=== PATIENT | male | born 1955 | race Caucasian/White ===

== ENCOUNTER 2024-10-01 11:42 | Outpatient (AMB) | payer MEDICARE, MEDICAID, SELFPAY ==
--- NOTE | 2024-10-01 11:44 | MHC.PC.OV ---
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: No Allergies No Known Allergies Allergy (Verified 10/01/24 12:10) Medication List - Last Reconciled 10/01/24 by NELY Live- amlodipine 5 mg PO DAILY aspirin 81 mg PO DAILY atorvastatin 20 mg PO BEDTIME B-complex with vitamin C 1 tab PO DAILY lisinopril 20 mg PO DAILY mecobalamin (vitamin B12) 1,000 mcg PO DAILY Tobacco use date assessed: 10/01/24 Fall risk assessment: 1 Fall in past year Last assessed Fall Risk: 10/01/24 Dental Screening Dental Screen Date: 10/01/24 Did you have a dental visit in the last 12 months?: No Did you have a dental problem in the last 6 months where you did not have access to dental care?: No Was dental information given to patient?: Yes HPI HPI Comments History of Present Illness Details 69 y/o M with HTN, HLD, b12 def, JENNY, intracranial atherosclerotic disease (severe stenosis of distal L and multifocal stenosis of the remaining L 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 distal branches and focal severe stenosis of the R V4 segment, Left V4 segment occlussion -chronic CTA head and neck 04/2024), small bilat basal ganglia lacunar infarcts (CT head 03/21/24), hx of DVT LUE, chronic small vessel ischemic dz (MRI brain 05/03) SurgHx: cataract removal bilat 2011 FHx: sig for CAD and [place], vascular dz AAA 4/ siblings SocHx: lives w/ sister and brother, 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 This was a difficult exam as he is a poor historian. ? learning disability or MCI He mentions he fell, was dizzy went to [facility], unsure when, cannot give details. Says a few words but does not complete sentences and then starts talking about something different. Hard to redirect. Even yes/no questions are not answered clearly. States not taking statin Is taking ASA and his BP meds, though not always taking BP meds He offers no complaints today Due for flu and tdap - will get today Will try to get some records on him Tells me he never had a colon and would like one. Exam Awake alert NAD RRR LS CTAB dim throughout Alert, poor historian Plan: Was able to get records from [facility]; appears his cognition today is baseline; as he went to the ER after getting a text to call outpatient radiology for a CT scan. That is what started his workup. He had dizziness and collapse 1 month prior to seeking medical care w/ pcp. Workup showed stroke. Strong family hx of CAD and Vascular dz Consult w/ neuro. Was Rx plavix for 90 days (unsure if he did or did not take this). Sleep study ordered- unsure if he had this done or not. Active w/ Cards - loop recorder recommended - no results. Check baseline labs, get more records, bring back to office in a few weeks to cont to est care. Colon ordered per request; Tdap and Flu admin Will need complex dz mgmt and support from what the records indicate. Total time spent caring for the patient today was 60 minutes. This includes time spent before the visit reviewing the chart, time spent during the visit, and time spent after the visit on documentation, reviewing laboratory results, diagnostic imaging, medications, performing a medically necessary evaluation, counseling on diagnoses, care coordination, ordering appropriate tests, ordering appropriate medications, review of tests performed by other providers, reporting test results with the patient, communication with other healthcare providers. [facility] Medical History (Updated 10/01/24 @ 17:24 by RACHAEL Live) No pertinent family history No pertinent past medical history Surgical History (Updated 10/01/24 @ 12:43 by Radha Dailey MA) H/O eye surgery Social History (Updated 10/01/24 @ 11:57 by Radha Dailey MA) Household Members: Other Household Members Other:: brother and sister Both parents involved: No Caregiver staying overnight: No Housing: Apartment Are you a primary care professional to a significant other at home: No Do you presently have visiting nurse or other home services: No 75 years or older and lives alone: No Alcohol intake: never Patient Tobacco Use Status: Never used Tobacco e-Cigarette/Vaping Use: Never Used Second Hand Smoke Exposure: No service: No Current occupational status: retired Cognitive needs: No Hearing needs: No Vision needs: No Questionnaire PHQ-9 Over the last 2 weeks, how often have you been bothered by any of the following problems? 1. Little interest or pleasure in doing things: not at all 2. Feeling down, depressed, or hopeless: not at all 3. Trouble falling or staying asleep, or sleeping too much: not at all 4. Feeling tired or having little energy: not at all 5. Poor appetite or overeating: not at all 6. Feeling bad about yourself - or that you are a failure or have let yourself or your family down: not at all 7. Trouble concentrating on things, such as reading the newspaper or watching television: not at all 8. Moving or speaking so slowly that other people could have noticed. Or the opposite - being so fidgety or restless that you have been moving around a lot more than usual: not at all 9. Thoughts that you would be better off or of hurting yourself in some way: not at all Total score: 0 Depression Screening Interpretation: Negative Depression Screening Done: Yes 06431 - PHQ-9 Billing: Yes Source: Developed by Drs. Ernesto Escamilla, Amanda Kellogg, Marco Reyna and colleagues, with an educational lyle from [employer]. Thrive Questionnaire Date Thrive assessed: 10/01/24 I am a: Patient What is your living situation today?: I have a steady place to live Within the past 12 months, did the food you bought not last and you didn't have the money to get more?: I choose not to answer this question Within the past 12 months, did you worry whether your food would run out before you got money to buy more?: I choose not to answer this question Do you have trouble paying for medicines?: No Do you have trouble getting transportation to medical appointments?: No Do you have trouble paying your heating and electricity bill?: I choose not to answer this question Do you have trouble taking care of your child, family member or friend?: I choose not to answer this question Do you have trouble with day-to-day activities such as bathing, preparing meals, shopping, managing finances, etc.?: I choose not to answer this question Are you currently unemployed and looking for a job?: I choose not to answer this question Are you interested in more education?: I choose not to answer this question Please select the resources that you would like help with: None Currently or been in a relationship where the following occur: I choose not to answer THRIVE Score: 0 AUDIT C Alcohol Use Questionnaire (AUDIT-C) 1. How often do you have a drink containing alcohol?: Never 3. How often do you have six or more drinks on one occasion?: Never Total Score: 0 Score Reviewed/Action Taken: Yes PALOMA-7 AMB Questionnaire PALOMA-7 Date PALOMA - 7 assessed: 10/01/24 Feeling nervous, anxious, or on edge: 0 = Not at all Not being able to stop or control worryin = Not at all Worrying too much about different things: 0 = Not at all Trouble relaxin = Not at all Being so restless that it is hard to sit still: 0 = Not at all Becoming easily annoyed or irritable: 0 = Not at all Feeling afraid as if something awful might happen: 0 = Not at all Total PALOMA-7 score (0-4 normal; 5-9 mild; 10-14 moderate; 15-21 severe): 0 Source: Developed by Drs. Ernesto Escamilla, Amanda Kellogg, Marco Reyna and colleagues, with an educational lyle from [employer]. PALOMA-7 Assessment Billing PALOMA-7 Assessment Tool: PALOMA-7 Assessment 53890 Physical exam (Primary Care) Vital Signs: Last Vital Signs Temp 97.6 F 10/01/24 11:57 Pulse 82 10/01/24 11:57 Resp 13 10/01/24 11:57 BP 138/76 10/01/24 11:57 Pulse Ox 97 10/01/24 11:57 Oxygen Delivery Method Room Air 10/01/24 11:57 BMI result Body Mass Index 26.9 Tobacco/Smoking Status: Tobacco use Status Tobacco use date assessed 10/01/24 10/01/24 11:52 Patient Tobacco Use Status Never used Tobacco 10/01/24 11:59 e-Cigarette/Vaping Use Never Used 10/01/24 11:59 PHQ-9: PHQ-9 Score PHQ-9: Total score 0 10/01/24 12:43 Depression Screening Interpretation: Negative Thrive Assessment: Date of Thrive Assessment Date Thrive assessed 10/01/24 10/01/24 11:52 Currently or been in a relationship where the following occur: I choose not to answer Office Procedures Flu Questionnaire Does the patient have a severe egg allergy?: No Does the patient have severe life threatening allergies?: No Does the patient have a fever or illness today?: No Has the patient ever had Guillain-[place] Syndrome?: No Has the patient ever had any past reaction to a flu shot?: No Immunizations Fluarix Triv (PF) 45 mcg (15 mcg x 3)/0.5 mL IM syringe Performing Provider: KANCHAN Live Performing Location: [facility] Administered by: Imelda Dominguez RN on 10/01/24 12:41 Dose Route Admin Location Dispensed Lot Number Expiration Date ND Hat Block Bench Hand 0.5 mL IM Right Deltoid 0.5 mL [id number] 01/07/25 [id number] [employer] VIS Given Date VIS Provided VIS Publication Date 10/01/24 Single Vaccine 21 Eligibility Eligibility Date Funding Source Not VFC Eligible 10/01/24 Private Boostrix Tdap 2.5 Lf unit-8 mcg-5 Lf/0.5 mL intramuscular syringe Performing Provider: KANCHAN Live Performing Location: [facility] Administered by: Imelda Dominguez RN on 10/01/24 12:41 Dose Route Admin Location Dispensed Lot Number Expiration Date [facility] Hat Block Bench Hand 0.5 mL IM Left Deltoid 0.5 mL [id number] 05/07/25 [id number] [employer] VIS Given Date VIS Provided VIS Publication Date 10/01/24 Single Vaccine 21 Eligibility Eligibility Date Funding Source Not VFC Eligible 10/01/24 Private Coding Level of Care Code New Pt Level 5 (77969) Complex EM visit Add On G2211 Diagnoses Encounter to establish care Z76.89 Primary hypertension I10 Hypertension type: primary hypertension Mixed hyperlipidemia E78.2 Hyperlipidemia type: mixed hyperlipidemia B12 deficiency E53.8 JENNY (obstructive sleep apnea) G47.33 Influenza vaccination administered at current visit Z23 Need for Tdap vaccination Z23 Multiple lacunar infarcts I63.81 Secondary hypercoagulability disorder D68.69 Intracranial atherosclerosis I67.2 Family history of early CAD Z82.49 Family history of abdominal aortic aneurysm (AAA) Z82.49 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; 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 Laboratory exam ordered as part of routine general medical examination Z00.00 Additional Codes PALOMA-7 Assessment Billing - PALOMA-7 Assessment Tool: PALOMA-7 Assessment 98377 ([id number]) PHQ-9 - 66911 - PHQ-9 Billing: Yes ([id number]) Assessment & Plan Assessment & Plan (1) Encounter to establish care: Code(s): Z76.89 - Persons encountering health services in other specified circumstances Category: Medical (2) HTN (hypertension): Comment: per neuro BP goal <130/80 Code(s): I10 - Essential (primary) hypertension Category: Medical Qualifiers: Hypertension type: primary hypertension Qualified Code(s): I10 - Essential (primary) hypertension (3) Hyperlipidemia: Comment: per neuro LDL goal < 70 Code(s): E78.5 - Hyperlipidemia, unspecified Category: Medical Qualifiers: Hyperlipidemia type: mixed hyperlipidemia Qualified Code(s): E78.2 - Mixed hyperlipidemia (4) B12 deficiency: Code(s): E53.8 - Deficiency of other specified B group vitamins Category: Medical (5) JENNY (obstructive sleep apnea): Comment: ? 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 and focal severe stenosis of the R V4 segment, Left V4 segment occlussion -chronic CTA head and neck 04/2024), small bilat basal ganglia lacunar infarcts (CT head 03/21/24), hx of DVT LUE, chronic small vessel ischemic dz (MRI brain 05/03) Code(s): I63.81 - Other cerebral infarction due to occlusion or stenosis of small artery Category: Medical (9) Secondary hypercoagulability disorder: Comment: on ASA Code(s): D68.69 - Other thrombophilia Category: Medical (10) Intracranial atherosclerosis: Comment: intracranial atherosclerotic disease (severe stenosis of distal L and multifocal stenosis of the remaining L 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 distal 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 and focal severe stenosis of the R V4 segment, Left V4 segment occlussion -chronic CTA head and neck 04/2024), small bilat basal ganglia lacunar infarcts (CT head 03/21/24), hx of DVT LUE, chronic small vessel ischemic dz (MRI brain 05/03) Code(s): I67.2 - Cerebral atherosclerosis Category: Medical (11) Family history of early CAD: Code(s): Z82.49 - Family history of ischemic heart disease and other diseases of the circulatory system Category: Medical (12) Family history of abdominal aortic aneurysm (AAA): Comment: 4 of 5 siblings Code(s): Z82.49 - Family history of ischemic heart disease and other diseases of the circulatory system Category: Medical (13) 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 (14) Laboratory exam ordered as part of routine general medical examination: Code(s): Z00.00 - Encounter for general adult medical examination without abnormal findings Category: Medical Plan . Orders: Orders Complete Blood Count no Diff Today E53.8 - Deficiency of other specified B group vitamins, E78.5 - Hyperlipidemia, unspecified, I10 - Essential (primary) hypertension, Z00.00 - Encounter for general adult medical examination without abnormal findings Comprehensive Met. Panel Today E53.8 - Deficiency of other specified B group vitamins, E78.5 - Hyperlipidemia, unspecified, I10 - Essential (primary) hypertension, Z00.00 - Encounter for general adult medical examination without abnormal findings IRON PROFILE Today E53.8 - Deficiency of other specified B group vitamins, E78.5 - Hyperlipidemia, unspecified, I10 - Essential (primary) hypertension, Z00.00 - Encounter for general adult medical examination without abnormal findings Influenza [id number] Immunization Today Z23 - Encounter for immunization TDaP Immunization Today Z23 - Encounter for immunization Hemoglobin A1c Today E53.8 - Deficiency of other specified B group vitamins, E78.5 - Hyperlipidemia, unspecified, I10 - Essential (primary) hypertension, Z00.00 - Encounter for general adult medical examination without abnormal findings Lipid Panel Today E53.8 - Deficiency of other specified B group vitamins, E78.5 - Hyperlipidemia, unspecified, I10 - Essential (primary) hypertension, Z00.00 - Encounter for general adult medical examination without abnormal findings Microalbumin, Random (w Creat) Today E53.8 - Deficiency of other specified B group vitamins, E78.5 - Hyperlipidemia, unspecified, I10 - Essential (primary) hypertension, Z00.00 - Encounter for general adult medical examination without abnormal findings PSA, Ultra Sensitive Today E53.8 - Deficiency of other specified B group vitamins, E78.5 - Hyperlipidemia, unspecified, I10 - Essential (primary) hypertension, Z00.00 - Encounter for general adult medical examination without abnormal findings TSH reflex Free T4 Today E53.8 - Deficiency of other specified B group vitamins, E78.5 - Hyperlipidemia, unspecified, I10 - Essential (primary) hypertension, Z00.00 - Encounter for general adult medical examination without abnormal findings Vitamin B12 and Folate Today E53.8 - Deficiency of other specified B group vitamins, E78.5 - Hyperlipidemia, unspecified, I10 - Essential (primary) hypertension, Z00.00 - Encounter for general adult medical examination without abnormal findings Vitamin D 25-OH Total Today E53.8 - Deficiency of other specified B group vitamins, E78.5 - Hyperlipidemia, unspecified, I10 - Essential (primary) hypertension, Z00.00 - Encounter for general adult medical examination without abnormal findings Referrals Gastroenterology Referral Z12.11 - Encounter for screening for malignant neoplasm of colon Patient Instructions: Walk-In Care (Urgent Care): We Make it Easy Walk-in for urgent medical issues such as: ? Seasonal Allergies ? Insect Bites ? Cough ? Diarrhea ? Acute Asthma Attacks ? Back, Knee or Joint Pain ? Ear Infection ? Fever without a Rash ? Headaches ? Nausea ? [place] [facility], Rash or Skin Irritation ? Sore Throat ? Sports Physicals ? Vomiting Most insurances are accepted. Patients do not need to be part of the [facility] to seek care at the walk-in clinic. Locations [facility] , [place] [address] ? [phone] [facility] in [place] provides services to ages 18 and over. Open Tuesday-Tuesday: 8 a.m. to 5 p.m. and Tuesday: 9 a.m. to 3 p.m.* *Hours may vary due to staffing availability. To confirm Walk-In Care hours in [place], please call [phone]. [address] [place] [address] ? [phone] [facility] in [place] provides services to ages 12 and over. Open Tuesday-Tuesday: 8 a.m. to 5 p.m. Hours may vary due to staffing availability. To confirm Walk-In Care hours in [place], please call [phone]. LABORATORY SERVICES: [facility] Lab ? Primary Location [address] [place] [address] Tuesday through Tuesday 6:00 AM ? 5:00 PM Tuesday 7:00 AM ? 11:00 AM* [phone] The [facility] Lab is centrally located near the front entrance of the [facility] for easy outpatient access. Convenient parking is provided for outpatients. *Hours may vary due to staffing availability. To confirm Laboratory hours for any location, please call [phone]. Offsite Location For your convenience, we offer offsite laboratory draw stations at the following locations: [address] [place] [address] ? [address], [address] Tuesday through Tuesday 7:30 AM ? 1:00 PM* [phone] *Hours may vary due to staffing availability. To confirm Laboratory hours for any location, please call [phone]. [place] [address] [facility] Tuesday through Tuesday 6:00 AM ? 3:30 PM* Tuesday 6:30 AM ? 3 PM* [phone] *Hours may vary due to staffing availability. To confirm Laboratory hours for any location, please call [phone]. [address] [facility] Tuesday through Tuesday 7:30 AM ? 4:00 PM* [phone] *Hours may vary due to staffing availability. To confirm Laboratory hours for any location, please call [phone]. [address] [facility] Tuesday through 9:00 AM ? 4:00 PM* *Hours may vary due to staffing availability. To confirm Laboratory hours for any location, please call [phone]. Appointments are not necessary. Walk-ins are welcome. Like all the departments throughout the [facility], our Lab undergoes frequent reviews to ensure the quality and accuracy of test results, and our staff takes special pride in its status as a nationally accredited facility. Patient Portal: ONE PATIENT. ONE RECORD. BETTER CARE. [facility] has a fully integrated, cutting-edge mobile electronic health information system that has revolutionized the way we care for our patients and manage our organization. This system improves communication and coordination enabling us to provide safe, higher-quality care, and an overall positive experience for staff and patients. Our first priority, as always, is to deliver the highest quality care possible. The system is running in the background supporting that priority. This portal is for all [facility] services and practices. If you are experiencing any technical difficulties with enrolling or logging into the Patient Portal please complete the [facility] Patient Portal Technical Support Form. [facility] now offers a new secure on-line interactive tool for patients to review their health information ? ?Patient Portal. This interactive web portal will enable patients and their families to take an active role in their care by providing easy, secure access to their health information via the internet. The Patient Portal provides patients with instant access to their health information, including laboratory results, medications, allergies, demographic information, visit history, and more. In addition to managing their own care, parents and health care proxies with authorized consent will appreciate the ability to access the records of those individuals for whom they provide care. Please note: if you wish to gain access (Proxy) to another patient?s portal, you will be required to come to the Medical Records Department in person at [facility]. Both the patient giving proxy access and the proxy will need to provide photo identification and complete the appropriate authorization. The Patient Portal also allows track their appointments online. The [facility] Patient Portal also saves patients time by allowing them to submit updates to their demographic and contact information prior to their visits. Portal email notifications will also alert patients to any new activity on their portal, such as test results and new appointments. In order to initially enroll in the [facility] Patient Portal, you will need to enter some required information including the following: your [facility] Medical Record number your personal home email address name date of Please note: In order to enroll in the [facility] Patient Portal, we need to have your email address on file in your electronic medical record. ?The email address needs to be specific for one person (yourself) in order for your Portal enrollment to be successful. ?You can update your email address in person with our Registration staff when you are registering for a hospital visit. ?Otherwise, you will need to come to the Health Information Management (Medical Records) Department at [facility]. ?We are open from Tuesday ? Tuesday from 7:30 a.m. ? 4:30 p.m. ?You will be required to present a photo id. Once you have successfully enrolled in the Patient Portal, you will receive a one-time user id and password for the Portal, sent to your email address. ?This will allow you to log into the Patient Portal within 99 hrs and reset your own logon id and password, and define personal security questions. ?Once your permanent login and password have been set, you can log into the [facility] Patient Portal at any time via the blue button above or from the Portal Logon button on any page of the [facility] website. [facility] and [facility] encourage all of our patients to enroll in Patient Portal as it presents a valuable opportunity for patients and their families to actively participate in their care and stay healthy Welcome to [facility]. ?We look forward to working with you.
[2024-10-01 11:57] VITALS: BP 138/76; PULSE 82; RESP 13; TEMP 36.4; O2SAT 97; BMI 26.9
== END 2024-10-01 12:37 | disposition home or self-care (01) ==
LOC: HO.HMCFM 11:43
PROVIDERS: PCP Nurse Practitioner Family; Visit Provider Nurse Practitioner Family
DX: I10 Essential (primary) hypertension (principal); Z76.89 Persons encountering health services in other specified circumstances; I63.81 Other cerebral infarction due to occlusion or stenosis of small artery; D68.69 Other thrombophilia; E78.2 Mixed hyperlipidemia; E53.8 Deficiency of other specified B group vitamins; G47.33 Obstructive sleep apnea (adult) (pediatric); Z23 Encounter for immunization; I67.2 Cerebral atherosclerosis; Z82.49 Family history of ischemic heart disease and other diseases of the circulatory system; R90.82 White matter disease, unspecified; I99.9 Unspecified disorder of circulatory system

== ENCOUNTER → 2024-10-01 11:42 | Outpatient (BNVA) | payer MEDICARE, SELFPAY | PROVIDERS: PCP Nurse Practitioner Family; Visit Provider Nurse Practitioner Family | DX: Z00.00 Encounter for general adult medical examination without abnormal findings (principal); Z23 Encounter for immunization; R90.82 White matter disease, unspecified; I99.9 Unspecified disorder of circulatory system; I67.2 Cerebral atherosclerosis; I63.81 Other cerebral infarction due to occlusion or stenosis of small artery; G47.33 Obstructive sleep apnea (adult) (pediatric); E53.8 Deficiency of other specified B group vitamins; E78.2 Mixed hyperlipidemia; I10 Essential (primary) hypertension; Z76.89 Persons encountering health services in other specified circumstances; Z82.49 Family history of ischemic heart disease and other diseases of the circulatory system | CPT/HCPCS: 90471; 90656; 90715; 96127; 99202 ==

== ENCOUNTER 2024-11-07 13:03 | Outpatient (AMB) | payer MEDICARE, MEDICAID, SELFPAY ==
--- NOTE | 2024-11-07 13:31 | A.OFFVIS_ITS ---
Intake Vital Signs 11/07/24 13:37 Height 5 ft 9 in Weight 183 lb BMI 27.0 BP 142/73 H Blood Pressure Location Lt brachial Position Sitting Respiration 13 Pulse 85 Pulse Source Pulse Oximeter Temp 97.4 F Temp Source Oral Pulse Oximetry (%) 95 Oxygen Delivery Method Room Air Intake Visit Reasons: 4-6 weeks sAWV/fu labs, est care Intake Note: AWV and follow up on labs [place] [employer] Required: No Allergies No Known Allergies Allergy (Verified 11/07/24 13:59) Medication List - Last Reconciled 11/07/24 by Mohini Carter, PURCHASING/RECEIVING- amlodipine 5 mg PO DAILY aspirin 81 mg PO DAILY atorvastatin 20 mg PO BEDTIME B-complex with vitamin C 1 tab PO DAILY lisinopril 20 mg PO DAILY mecobalamin (vitamin B12) 1,000 mcg PO DAILY Do you need a note to return to daycare/school/sports/work: No HPI HPI Comments History of Present Illness Details Here today for AWV. The Medicare Annual Wellness Visit (AWV) is a yearly appointment with a health professional to identify health risks and help reduce them and to create or update a personalized prevention plan. During a Medicare AWV, health professionals should also review any current opioid prescriptions, detect any cognitive impairment, and establish or update medical and family history. 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 Colon: has never had one, referred to GI today Vaccines: Flu 2024 Tdap 2024 UTD Zoster, PVC 20 AAA screen: NA EKG:done in office today, ST abnormality, NSR, no sx, [place] of Care: Cards Dr Steiner echo 06/01/24 EF 55-60%, grade 1 diastolic dysfunctions w/ impaired LV relaxation, mild dilation of aortic room (40mm), and loop Neuro Visual Acuity: done today; reading glasses Hearing Screening: offers no complaints ACP: does not have HCP or MOLST, forms provided to him today. Dietary/Nutrition/Exercise Edu provided: Y During the course of the visit the patient was educated and counseled about appropriate screening and preventative services. Patient instructions were provided to the patient in written or electronic format. I have reviewed and verified the above information. History of Present Illness - The patient is a 69-year-old male pres enting for an annual Medicare wellness visit. - Medications include atorvastatin, amlo dipine, and lisinopril. - Recent diabetes screening returned nor mal results. - Preventive vaccines are up to date, in cluding flu, tetanus, shingles, and pneumococcal vaccines. - High blood pressure and dyslipidemia m anagement are ongoing. Past Surgical History - NONE NOTED Family History - The patient's mother reportedly had di abetes. Social History - The patient has reduced caffeine consu mption, now having one cup of coffee daily without sugar. - He consumes some soda. - The patient lives on the second floor. - No current issues with housing or empl oyment were noted. Health Maintenance - Flu vaccine administered and up to alphonse e. - Tetanus vaccine administered and up to date. - Completed shingles vaccine series. - Pneumococcal vaccine completed. - Normal diabetes screening done during this visit. Review of Systems - Neurological: Reports history of strok e. - Endocrine: Denies diabetes (normal jaja betes screening). - Cardiovascular: Reports high blood pre ssure. - ENT: Denies current hearing issues; re ports past earwax-related hearing difficulty. - Musculoskeletal: Reports occasional un steadiness. - General: Denies any new health issues since last visit. Physical Exam General: Well developed, well nourished, in no acute distress. Appears stated age. Head: Normocephalic, atraumatic. Eyes: Pupils are equal, round and reactive to light and accommodation. Conjunctivae are clear. Vision grossly normal. Wears reading glasses. Ears: TMs clear AU, EACS WNL. No wax today. Nose: Patent, without discharge. Neck: Supple, no adenopathy or thyromegaly. Breast: Edu on SBE Lungs: Clear to auscultation bilaterally. No rales, rhonchi or wheeze noted. Dim throughout. Heart: Regular rate and rhythm. No murmurs, click, rubs or gallops are noted. Abdomen: Bowel sounds present in all quadrants. The abdomen is soft, nontender, with no masses or organomegaly noted. No hernias are noted. : Deferred. Reviewed ARTHUR recommendations Pulses: Peripheral pulses are equal and palpable bilaterally. Extremities: No clubbing, cyanosis nor edema is noted. No swelling in ankles. Neurologic: Gait and station normal. Cranial Nerves 2-12 intact. Motor strength grossly symmetrical and intact. No sensory loss. Balance normal. Difficulty with recall noted. Skin: No rashes, ulcers, or lesions noted. Turgor is good. Skin color is good. Hair and nails are without abnormalities. Psych: Normal eye contact, affect and mood appropriate, and normal interactions. Patient is alert and appropriate to context. Discussion Notes I discussed and reviewed the patient's ongoing management of high blood pressure and dyslipidemia, highlighting the importance of medication adherence. We also discussed his stroke history and its implications for ongoing monitoring and management. I recommended continuing all current medications and emphasized adherence for both cardiovascular prevention and stroke risk reduction. We reviewed his vaccination history, confirming he is up to date with all recommended vaccines, and discussed his annual wellness and screening tests, which are current. I also provided him with additional information about completing advanced care planning forms, emphasizing their importance in healthcare decision-making. Consent for lab work and possible future procedures will be revisited as necessary. Assessment and Plan 1. Essential Hypertension Ongoing management with amlodipine and lisinopril; advised adherence and lifestyle modifications. 2. Dyslipidemia Continuing atorvastatin; advised adherence to reduce cardiovascular risk. 3. Stroke Encouraged adherence to medication; highlighted importance of regular follow- ups. Will have my staff call neuro to see if he is active there; if not, will need to send in a new referral, will try to keep w/in [facility] network 4. Advanced Care Planning Provided forms for completion; advised on importance and return. 5. Abnormal EKG will have results faxed to Dr Steiner and have my office confirm he is actively following up w them. I have also placed a referral to [facility] to help him navigate. Patient Instructions - Continue taking your blood pressure an d cholesterol medications regularly. - Maintain a healthy diet and engage in regular physical activity. - Complete advanced care planning forms and bring them back during your next visit. - Monitor for any changes in hearing and report concerns. - Reach out if you experience any new sy mptoms or health concerns. - RTO 6 months for routine check in; he was brought to the lab by myself today to complete his lab work, Consent Patient was informed and verbally consented to the use of an ambient scribe for clinic note documentation during this visit. An additional 30 minutes was spent addressing the problem(s) noted at todays visit. This includes time spent before the visit reviewing the chart, time spent during the visit, and time spent after the visit on documentation reviewing laboratory results, diagnostic imaging, medications, performing a medically necessary evaluation, counseling on diagnoses, care coordination, ordering appropriate tests, ordering appropriate medications, review of tests performed by other providers, reporting test results with the patient, communication with other healthcare providers. [facility] Medical History (Updated 11/07/24 @ 14:17 by Mohini Carter [facility]) No pertinent family history No pertinent past medical history Surgical History (Updated 10/01/24 @ 12:43 by Radha Dailey MA) H/O eye surgery Social History (Updated 10/01/24 @ 11:57 by Radha Dailey MA) Household Members: Other Household Members Other:: brother and sister Both parents involved: No Caregiver staying overnight: No Housing: Apartment Are you a primary child care coordinator to a significant other at home: No Do you presently have visiting nurse or other home services: No 75 years or older and lives alone: No Alcohol intake: never Patient Tobacco Use Status: Never used Tobacco e-Cigarette/Vaping Use: Never Used Second Hand Smoke Exposure: No service: No Current occupational status: retired Cognitive needs: No Hearing needs: No Vision needs: No Questionnaire Medicare Wellness Checkup What [age] What gender do you identify with?: male During the past 4 weeks, how much have you been bothered by emotional problems such as feeling anxious, depressed, irritable, sad or downhearted, and blue?: not at all During the past 4 weeks, has your physical & emotional health limited your social activities with family, friends, neighbors, or groups?: not at all During the past 4 weeks, how much bodily pain have you generally had?: no pain During the past 4 weeks, was someone available to help you if you needed & wanted help?: yes, as much as I wanted During the past 4 weeks, what was the hardest physical activity you could do for at least 2 minutes?: moderate Can you get to places out of walking distance without help? (For eg., can you travel alone on buses, taxis or drive your car?): Yes Can you go shopping for groceries or clothes without someone's help?: Yes Can you prepare your own meals?: Yes Can you do your housework without help?: Yes Because of any health problems, do you need the help of another person with your personal care needs such as eating, bathing, dressing or getting around the house?: No Can you handle your own money without help?: Yes During the past 4 weeks, how would you rate your health in general?: very good During the past 4 weeks how have things been going for you?: pretty well Are you having difficulties driving your car?: no Do you always fasten your seat belt when you are in a car?: yes, usually During past 4 weeks, have you been bothered by the following: never: Falling or dizzy when standing up, Sexual problems?, Trouble eating well?, Teeth or denture problems?, Problems using the telephone? and Tiredness or fatigue? Have you fallen 2 or more times in the past year?: No Are you afraid of falling?: No Are you a smoker?: no During the past 4 weeks, how many drinks of wine, beer, or other alcoholic beverages did you have?: no alcohol at all Do you exercise for about 20 minutes 3 or more times a week?: yes, most of the time Have you been given information to help with the following?: no: Hazards in your house that might hurt you? and no: Keeping track of your medications? How often do you have trouble taking medicines the way you have been told to take them?: I always take medicine as prescribed How confident are you that you can control & manage most of your health problems?: very confident What is your race?: White Activity of Daily Living Bathing - sponge bath, tub bath or shower: receives no assistance (gets in/out by self, if usual bathing means Dressing - getting clothes from closets & drawers, including inner/outer garments & fasteners.: gets clothes & gets completely dressed without help Toileting - going to the 'toilet room' for urine/bowel elimination & cleaning self/arranging clothes: goes to toilet room, cleans self, arranges clothes without help Transfer: moves in & out of bed and chair without help (may use support object) Continence: controls urination/bowel movements completely by self Feeding: feeds self without help Total Score: 0 Information obtained from: patient Using telephone: independent Traveling: independent Shopping: independent Preparing meals: independent Housework: independent Taking medicine: independent Managing money: independent PHQ-9 Over the last 2 weeks, how often have you been bothered by any of the following problems? 1. Little interest or pleasure in doing things: not at all 2. Feeling down, depressed, or hopeless: not at all 3. Trouble falling or staying asleep, or sleeping too much: not at all 4. Feeling tired or having little energy: not at all 5. Poor appetite or overeating: not at all 6. Feeling bad about yourself - or that you are a failure or have let yourself or your family down: not at all 7. Trouble concentrating on things, such as reading the newspaper or watching television: not at all 8. Moving or speaking so slowly that other people could have noticed. Or the opposite - being so fidgety or restless that you have been moving around a lot more than usual: not at all 9. Thoughts that you would be better off or of hurting yourself in some way: not at all Total score: 0 Depression Screening Interpretation: Negative Depression Screening Done: Yes 54243 - PHQ-9 Billing: Yes Source: Developed by Drs. Ernesto Escamilla, Amanda Kellogg, Marco Reyna and colleagues, with an educational lyle from [employer]. Physical Exam Vital Signs: Last Vital Signs Temp 97.4 F 11/07/24 13:37 Pulse 85 11/07/24 13:37 Resp 13 11/07/24 13:37 BP 142/73 H 11/07/24 13:37 Pulse Ox 95 11/07/24 13:37 Oxygen Delivery Method Room Air 11/07/24 13:37 BMI result Body Mass Index 27.0 Office Procedures EKG [id number], Complete Vision Screening Right Eye: 20/40 Left Eye: 20/40 Bilateral: 20/40 65042 - Vision Screening Results AMB Hemoglobin A1c AMB Hemoglobin A1c 5.0 % Last Edit by Radha Dailey MA on 11/07/24 14:02 Results Reviewed Results Reviewed: Laboratory Last Values Hgb A1c (Clinic) 5.0 % (4.0-6.0) 11/07/24 13:51 Assessment & Plan Assessment & Plan (1) Encounter for subsequent annual wellness visit (AWV) in Medicare patient: Code(s): Z00.00 - Encounter for general adult medical examination without abnormal findings (2) Abnormal EKG: Onset Date: ~10/2024 Code(s): R94.31 - Abnormal electrocardiogram [ECG] [EKG] (3) Encounter for screening involving social determinants of health (SDoH): Code(s): Z13.9 - Encounter for screening, unspecified (4) HTN (hypertension): Comment: per neuro BP goal <130/80 Code(s): I10 - Essential (primary) hypertension Qualifiers: Hypertension type: primary hypertension Qualified Code(s): I10 - Essential (primary) hypertension (5) Hyperlipidemia: Comment: per neuro LDL goal < 70 Code(s): E78.5 - Hyperlipidemia, unspecified Qualifiers: Hyperlipidemia type: mixed hyperlipidemia Qualified Code(s): E78.2 - Mixed hyperlipidemia (6) Intracranial atherosclerosis: Comment: intracranial atherosclerotic disease (severe stenosis of distal L and multifocal stenosis of the remaining L [employer] distal branches and focal severe stenosis of the R V4 segment, Left V4 segment occlussion -chronic CTA head and neck 04/2024), small bilat basal ganglia lacunar infarcts (CT head 03/21/24), hx of DVT LUE, chronic small vessel ischemic dz (MRI brain 05/03) Code(s): I67.2 - Cerebral atherosclerosis (7) Multiple lacunar infarcts: Comment: intracranial atherosclerotic disease (severe stenosis of distal L and multifocal stenosis of the remaining L [employer]LYST distal branches and focal severe stenosis of the R V4 segment, Left V4 segment occlussion -chronic CTA head and neck 04/2024), small bilat basal ganglia lacunar infarcts (CT head 03/21/24), hx of DVT LUE, chronic small vessel ischemic dz (MRI brain 05/03) Code(s): I63.81 - Other cerebral infarction due to occlusion or stenosis of small artery (8) Secondary hypercoagulability disorder: Comment: on ASA Code(s): D68.69 - Other thrombophilia (9) 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: Comment: intracranial atherosclerotic disease (severe stenosis of distal L and multifocal stenosis of the remaining L [employer]ST distal branches and focal severe stenosis of the R V4 segment, Left V4 segment occlussion -chronic CTA head and neck 04/2024), small bilat basal ganglia lacunar infarcts (CT head 03/21/24), hx of DVT LUE, chronic small vessel ischemic dz (MRI brain 05/03) Code(s): R90.82 - White matter disease, unspecified; I99.9 - Unspecified disorder of circulatory system Plan , Orders: Orders AMB Hemoglobin A1c Today Z13.9 - Encounter for screening, unspecified Referrals Nurse Navigator Referral Z13.9 - Encounter for screening, unspecified Quality Reporting (2019) Adult ([facility] 138//) Smoking risk assessment performed?: Yes Patient Tobacco Use Status: Never used Tobacco Depression screening performed: Yes Screen Results: Yes Negative screen Systolic BP not done?: No Diastolic BP not done?: No BMI screening not done: No Sexual Activity Screening ([facility] 153) Sexually active?: No Immunizations ([facility] 147, 117) Annual Influenza Vaccine: Yes Measles Antibody Test: No Mumps Antibody Test: No Rubella Antibody Test: No Varicella Antibody Test: No Anti Hepatitis A IgG Antigen test: No Anti Hepatitis B Virus Surface Ab test: No Fall Risk Screening ([facility] 139) Last assessed Fall Risk: 11/07/24 Fall risk assessment: 1 Fall in past year Dementia Assessment ([facility] 149) Cognitive assessment recorded: Yes Assessment of cognition with standardized tool: Yes (05/07 on 6 CIT ) Depression/Bipolar (159/160/161/177) PHQ-9: Total score: 0 Ophthalmol:Cataracts Visual Acuity (133) Visual acuity exam performed: Yes Coding Level of Care Code Medicare Subsequent (G0439) Est Pt Level 4 (78590) Diagnoses Encounter for subsequent annual wellness visit (AWV) in Medicare patient Z00.00 Abnormal EKG R94.31 Encounter for screening involving social determinants of health (SDoH) Z13.9 Primary hypertension I10 Hypertension type: primary hypertension Mixed hyperlipidemia E78.2 Hyperlipidemia type: mixed hyperlipidemia Intracranial atherosclerosis I67.2 Multiple lacunar infarcts I63.81 Secondary hypercoagulability disorder D68.69 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
[2024-11-07 13:37] VITALS: BP 142/73; PULSE 85; RESP 13; TEMP 36.3; O2SAT 95; BMI 27.0
== END 2024-11-07 14:34 | disposition home or self-care (01) ==
LOC: HO.HMCFM 13:04
PROVIDERS: PCP Nurse Practitioner Family; Visit Provider Nurse Practitioner Family
DX: Z00.00 Encounter for general adult medical examination without abnormal findings (principal); I63.81 Other cerebral infarction due to occlusion or stenosis of small artery; R94.31 Abnormal electrocardiogram [ECG] [EKG]; I10 Essential (primary) hypertension; E78.2 Mixed hyperlipidemia; I67.2 Cerebral atherosclerosis; D68.69 Other thrombophilia; R90.82 White matter disease, unspecified; I99.9 Unspecified disorder of circulatory system; Z01.00 Encounter for examination of eyes and vision without abnormal findings

== ENCOUNTER → 2024-11-07 13:03 | Outpatient (BNVA) | payer MEDICARE, SELFPAY | PROVIDERS: PCP Nurse Practitioner Family; Visit Provider Nurse Practitioner Family | DX: Z13.89 Encounter for screening for other disorder (principal) ==

== ENCOUNTER 2024-11-07 14:20 | Outpatient (REF) | payer MEDICARE, SELFPAY ==
[2024-11-07 18:12] LABS: Hematocrit 44.4 % (42.0-52.0); Hemoglobin 15.3 g/dl (14.0-18.0); Mean Corpuscular HGB Conc 34.5 g/dl (31.0-36.0); Mean Corpuscular Hemoglobin 31.9 pg (27.0-33.0); Mean Corpuscular Volume 92.7 fL (80.0-98.0); Platelet Count 188 X10*3/uL (160-400); Red Blood Count 4.79 X10*6/uL (4.60-5.80); Red Cell Distribution Width 13.1 % (11.0-16.0); White Blood Count 7.3 X10*3/uL (4.8-10.8)
[2024-11-07 18:41] LABS: Creatinine Urine 181.93 mg/dL; Microalbum/Creatinine Ratio Ur 14.8 ug/mg cr (<30)
[2024-11-07 18:43] LABS: Alanine Aminotransferase 12 U/L (0-40); Albumin Level 4.1 g/dL (3.5-5.0); Alkaline Phosphatase 70 U/L (39-117); Anion Gap 12 (12-20); Aspartate Amino Transferase 18 U/L (5-37); Bilirubin Total 0.6 mg/dL (0.0-1.0); Blood Urea Nitrogen 19 mg/dL (9-16); Carbon Dioxide 26 mmol/L (22-29); Chloride 107 mmol/L (96-108); Cholesterol 177 mg/dL (<200); Estimated Glomerular Filt Rate > 60; Glucose Random 79 mg/dL (60-115); HDL Cholesterol 47 mg/dL (>40); Iron 83 mcg/dL (45-160); LDL Cholesterol Calculated 108 mg/dL (<100); Percent Iron Saturation 30 % (15-50); Sodium 141 mmol/L (135-145); TSH reflex Free T4 1.23 uIU/mL (0.32-4.0); Total Iron Binding Capacity 274 mcg/dL (228-428); Total Protein 6.9 g/dL (6.5-8.0); Triglycerides 112 mg/dL (<150); Unsaturated Iron Binding 191 ug/dL
[2024-11-07 18:59] LABS: Folate 6.1 ng/mL (> or = 4.0); Vitamin B12 648 pg/mL (200-900)
== END 2024-11-07 14:21 | disposition home or self-care (01) ==
LOC: HO.WFDLDS 14:20
PROVIDERS: Visit Provider Nurse Practitioner Family
DX: Z00.00 Encounter for general adult medical examination without abnormal findings (principal); R94.31 Abnormal electrocardiogram [ECG] [EKG]; I10 Essential (primary) hypertension; E78.2 Mixed hyperlipidemia; I67.2 Cerebral atherosclerosis; I63.81 Other cerebral infarction due to occlusion or stenosis of small artery; D68.69 Other thrombophilia; R90.82 White matter disease, unspecified; I99.9 Unspecified disorder of circulatory system; E53.8 Deficiency of other specified B group vitamins; Z79.82 Long term (current) use of aspirin; Z12.5 Encounter for screening for malignant neoplasm of prostate
CPT/HCPCS: 36415; 80053; 80061; 82043; 82306; 82570; 82607; 82746; 83036; 83540; 84153; 84443; 85027; 93005; 96127; 99212

== ENCOUNTER 2025-04-30 10:29 | Outpatient (AMB) | payer MEDICARE, SELFPAY ==
--- NOTE | 2025-04-30 10:31 | MHC.PC.OV ---
Vital Signs 04/30/25 10:37 Height 5 ft 9 in Weight 182 lb BMI 26.9 BP 136/76 Blood Pressure Location Lt brachial Position Sitting Respiration 13 Pulse 73 Pulse Source Pulse Oximeter Temp 97.4 F Temp Source Oral Pulse Oximetry (%) 99 Oxygen Delivery Method Room Air Intake Visit Reasons: 6 mo routine fu 30 min Intake Note: 6 Months routine follow up. Entry Level Manager Required: No Allergies No Known Allergies Allergy (Verified 04/30/25 10:54) Medication List - Last Reconciled 04/30/25 by Mohini Carter, CAR WASH SUPERVISOR- amlodipine 5 mg PO DAILY aspirin 81 mg PO DAILY atorvastatin 40 mg PO BEDTIME B-complex with vitamin C 1 tab PO DAILY cholecalciferol (vitamin D3) 50 mcg PO DAILY lisinopril 20 mg PO DAILY mecobalamin (vitamin B12) 1,000 mcg PO DAILY Tobacco use date assessed: 04/30/25 Fall risk assessment: No Falls in past year Last assessed Fall Risk: 04/30/25 Dental Screening Dental Screen Date: 04/30/25 Did you have a dental visit in the last 12 months?: Yes Did you have a dental problem in the last 6 months where you did not have access to dental care?: No Was dental information given to patient?: Patient has dentist HPI HPI Comments History of Present Illness Details 70 y/o M with HTN, HLD, b12 def, JENNY, intracranial atherosclerotic disease (severe stenosis of distal L and multifocal stenosis of the remaining L [employer] distal branches and focal severe stenosis of the R V4 segment, Left V4 segment occlussion -chronic CTA head and neck 04/2024), small bilat basal ganglia lacunar infarcts (CT head 03/21/24), hx of DVT LUE, chronic small vessel ischemic dz (MRI brain 05/03), JENNY on CPAP SurgHx: cataract removal bilat 2011 FHx: sig for CAD and [place], vascular dz AAA 4/5 siblings , Mom DM SocHx: lives w/ sister and brother, drives; 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 Tdap 2024 UTD Zoster, PVC 20 [place] of Care: Cards Dr Steiner echo 06/01/24 EF 55-60%, grade 1 diastolic dysfunctions w/ impaired LV relaxation, mild dilation of aortic room (40mm), and loop Neuro @ [facility] History of Present Illness The patient is a 70-year-old male presenting with routine complex disease management. Essential Hypertension: - Managed with amlodipine and lisinopril Hyperlipidemia: - Managed with atorvastatin and aspirin. Admits to not taking statin QD. Unsure why. Obstructive Sleep Apnea: - Diagnosed, CPAP machine recommended but did not start; needs to pharmacy picking tech machine; managed by [facility] neuro Review of Systems - Cardiovascular: Reports current use of amlodipine and lisinopril for hypertension - Respiratory: Reports sleep apnea; CPAP not yet acquired - Musculoskeletal: Denies current use of Flexeril - General: Reports up-to-date vaccinations: flu, COVID, RSV Physical Exam General: Well developed, well nourished, in no acute distress. Appears stated age. Head: Normocephalic, atraumatic. Eyes: Pupils are equal, round and reactive to light and accommodation. Conjunctivae are clear. Lungs: Clear to auscultation bilaterally. No rales, rhonchi or wheeze noted. Good air flow in all palafox. Heart: Regular rate and rhythm. No murmurs, click, rubs or gallops are noted. Pulses: Peripheral pulses are equal and palpable bilaterally. Extremities: No clubbing, cyanosis nor edema is noted. Neuro: Baseline expressive aphasia Psych: Mood and affect appropriate. Results Pending Discussion Notes I reviewed with the patient the importance of obtaining a CPAP machine for his diagnosed obstructive sleep apnea, emphasizing the health risks associated with untreated sleep apnea, such as insufficient oxygen reaching the brain. The patient acknowledged the recommendations and the necessity of CPAP. I also confirmed that his vaccinations are up to date, including flu, COVID, and RSV, and recognized his adherence to preventive care. I instructed the patient to obtain blood work to assess his cholesterol levels. Plans were made to see the patient again in October for a physical exam, and I coordinated assistance in facilitating the CPAP machine acquisition. I encouraged the patient to continue adherence to his current medication regimen for hypertension and hyperlipidemia. Patient was given time to ask questions. All questions were answered to their satisfaction. Assessment and Plan 1. Essential Hypertension - Continue current medications 2. Hyperlipidemia - Continue current medications Labs today A referral to [facility] is already in place; new message sent to see if they can asst w/ medical follow through like getting his CPAP and taking his meds; also need to fu with dr steiner his cards if he has not already 3. Obstructive Sleep Apnea - Obtain CPAP machine - managed by [facility] neuro Patient Instructions - Get blood work done for cholesterol levels - Work with nurse Varsha to get the CPAP machine & med edu - Continue taking your medications as prescribed - Follow up in October for FRANCOISV sooner PRN Consent Patient was informed and verbally consented to the use of an ambient scribe for clinic note documentation during this visit. Total time spent caring for the patient today was 30 minutes. This includes time spent before the visit reviewing the chart, time spent during the visit, and time spent after the visit on documentation, reviewing laboratory results, diagnostic imaging, medications, performing a medically necessary evaluation, counseling on diagnoses, care coordination, ordering appropriate tests, ordering appropriate medications, review of tests performed by other providers, reporting test results with the patient, communication with other healthcare providers. [facility] Medical History (Updated 04/30/25 @ 11:01 by Mohini Carter [facility]) No pertinent family history No pertinent past medical history JENNY (obstructive sleep apnea) Surgical History (Updated 10/01/24 @ 12:43 by Radha Dailey MA) H/O eye surgery Social History (Updated 10/01/24 @ 11:57 by Radha Dailey MA) Household Members: Other Household Members Other:: brother and sister Both parents involved: No Caregiver staying overnight: No Housing: Apartment Are you a primary interior plant caretaker to a significant other at home: No Do you presently have visiting nurse or other home services: No 75 years or older and lives alone: No Alcohol intake: never Patient Tobacco Use Status: Never used Tobacco e-Cigarette/Vaping Use: Never Used Second Hand Smoke Exposure: No service: No Current occupational status: retired Cognitive needs: No Hearing needs: No Vision needs: No Questionnaire Thrive Questionnaire Date Thrive assessed: 10/01/24 I am a: Patient What is your living situation today?: I have a steady place to live Within the past 12 months, did the food you bought not last and you didn't have the money to get more?: I choose not to answer this question Within the past 12 months, did you worry whether your food would run out before you got money to buy more?: I choose not to answer this question Do you have trouble paying for medicines?: No Do you have trouble getting transportation to medical appointments?: No Do you have trouble paying your heating and electricity bill?: I choose not to answer this question Do you have trouble taking care of your child, family member or friend?: I choose not to answer this question Do you have trouble with day-to-day activities such as bathing, preparing meals, shopping, managing finances, etc.?: I choose not to answer this question Are you currently unemployed and looking for a job?: I choose not to answer this question Are you interested in more education?: I choose not to answer this question Please select the resources that you would like help with: None Currently or been in a relationship where the following occur: I choose not to answer THRIVE Score: 0 PALOMA-7 AMB Questionnaire PALOMA-7 Date PALOMA - 7 assessed: 10/01/24 Source: Developed by Drs. Ernesto Escamilla, Amanda Kellogg, Marco Reyna and colleagues, with an educational lyle from [employer]. Physical exam (Primary Care) Vital Signs: Last Vital Signs Temp 97.4 F 04/30/25 10:37 Pulse 73 04/30/25 10:37 Resp 13 04/30/25 10:37 BP 136/76 04/30/25 10:37 Pulse Ox 99 04/30/25 10:37 Oxygen Delivery Method Room Air 04/30/25 10:37 BMI result Body Mass Index 26.9 Tobacco/Smoking Status: Tobacco use Status Tobacco use date assessed 04/30/25 04/30/25 10:32 Patient Tobacco Use Status Never used Tobacco 04/30/25 10:32 e-Cigarette/Vaping Use Never Used 04/30/25 10:32 Thrive Assessment: Date of Thrive Assessment Date Thrive assessed 10/01/24 04/30/25 10:32 Currently or been in a relationship where the following occur: I choose not to answer Coding Level of Care Code Est Pt Level 4 (34601) Complex EM visit Add On G2211 Diagnoses JENNY on CPAP G47.33; Z99.89 Primary hypertension I10 Hypertension type: primary hypertension Mixed hyperlipidemia E78.2 Hyperlipidemia type: mixed hyperlipidemia B12 deficiency E53.8 Assessment & Plan Assessment & Plan (1) JENNY on CPAP: Comment: 10/2024 Sleep Study done @ [facility]; Start CPAP managed by [facility] Neuro Code(s): G47.33 - Obstructive sleep apnea (adult) (pediatric); Z99.89 - Dependence on other enabling machines and devices Category: Medical (2) HTN (hypertension): Comment: per neuro BP goal <130/80 Code(s): I10 - Essential (primary) hypertension Category: Medical Qualifiers: Hypertension type: primary hypertension Qualified Code(s): I10 - Essential (primary) hypertension (3) Hyperlipidemia: Comment: per neuro LDL goal < 70 Code(s): E78.5 - Hyperlipidemia, unspecified Category: Medical Qualifiers: Hyperlipidemia type: mixed hyperlipidemia Qualified Code(s): E78.2 - Mixed hyperlipidemia (4) B12 deficiency: Code(s): E53.8 - Deficiency of other specified B group vitamins Category: Medical Plan . Orders: Orders Vitamin D 25-OH Total Today E53.8 - Deficiency of other specified B group vitamins, E78.2 - Mixed hyperlipidemia, I10 - Essential (primary) hypertension Comprehensive Met. Panel Today E53.8 - Deficiency of other specified B group vitamins, E78.2 - Mixed hyperlipidemia, I10 - Essential (primary) hypertension Lipid Panel Today E53.8 - Deficiency of other specified B group vitamins, E78.2 - Mixed hyperlipidemia, I10 - Essential (primary) hypertension Vitamin B12 and Folate Today E53.8 - Deficiency of other specified B group vitamins, E78.2 - Mixed hyperlipidemia, I10 - Essential (primary) hypertension
[2025-04-30 10:37] VITALS: BP 136/76; PULSE 73; RESP 13; TEMP 36.3; O2SAT 99; BMI 26.9
== END 2025-04-30 11:07 | disposition home or self-care (01) ==
LOC: HO.HMCFM 10:30
PROVIDERS: PCP Nurse Practitioner Family; Visit Provider Nurse Practitioner Family
DX: G47.33 Obstructive sleep apnea (adult) (pediatric) (principal); Z99.89 Dependence on other enabling machines and devices; I10 Essential (primary) hypertension; E78.2 Mixed hyperlipidemia; E53.8 Deficiency of other specified B group vitamins

== ENCOUNTER 2025-04-30 10:29 | Outpatient (REF) | payer MEDICARE, SELFPAY ==
[2025-04-30 15:29] LABS: Folate 6.9 ng/mL (> or = 4.0); Vitamin B12 814 pg/mL (200-900)
[2025-04-30 17:27] LABS: Alanine Aminotransferase 12 U/L (0-40); Albumin Level 4.3 g/dL (3.5-5.0); Alkaline Phosphatase 70 U/L (39-117); Anion Gap 12 (12-20); Aspartate Amino Transferase 22 U/L (5-37); Blood Urea Nitrogen 14 mg/dL (9-16); Calcium 9.3 mg/dL (8.4-10.2); Carbon Dioxide 28 mmol/L (22-29); Chloride 106 mmol/L (96-108); Cholesterol 175 mg/dL (<200); Estimated Glomerular Filt Rate > 60; HDL Cholesterol 47 mg/dL (>40); Potassium 4.6 mmol/L (3.3-5.1); Sodium 141 mmol/L (135-145); Total Protein 6.8 g/dL (6.5-8.0); Triglycerides 124 mg/dL (<150)
== END 2025-04-30 10:30 | disposition home or self-care (01) ==
LOC: HO.WFDLDS 10:29
PROVIDERS: PCP Nurse Practitioner Family; Visit Provider Nurse Practitioner Family
DX: I10 Essential (primary) hypertension (principal); E78.2 Mixed hyperlipidemia; E53.8 Deficiency of other specified B group vitamins; G47.33 Obstructive sleep apnea (adult) (pediatric); Z79.82 Long term (current) use of aspirin; Z79.899 Other long term (current) drug therapy
CPT/HCPCS: 36415; 80053; 80061; 82306; 82607; 82746; 99212